=== PATIENT | male | born 1975 | race Caucasian/White ===

== ENCOUNTER 2017-09-25 08:41 | Emergency (ER) | payer OTHER ==
[~2017-09-25] VITALS: Ht 175.3 cm; Wt 103.0 kg
[2017-09-25 08:48] VITALS: BP 149/97; PULSE 84; RESP 18; TEMP 98.3; O2SAT 95
--- NOTE | 2017-09-25 08:56 | PD ---
HPI Chief Complaint: chest pain Time Seen by Provider: 08:51 Travel History International Travel<30 days: No Contact w/Intl Traveler<30days: No Traveled to known affect area: No History of Present Illness HPI 41-year-old male complains of chest pain. Patient states that the chest pain started a week ago. Patient states that he has intermittent chest pain for the past week. Patient states the pain and pressure pain localized left chest. Patient denies any pain radiation. Patient denies palpitation nausea diaphoresis with the chest pain. Patient states that the chest pain is not associated with exertion. Patient states that the pain usually lasts a few minutes and resolved completely. Patient denies any coughing congestion fever chills. Patient states that he started having sharp stabbing pain left anterior chest wall this morning. Patient states that the pain lasted a few minutes and resolved completely. Patient denies any chest pain now. Patient went to the [place] [facility] and was sent to the ED for evaluation. Patient has history hypertension, hyperlipidemia. Patient denies history diabetes. Patient denies any illicit drug abuse. Patient has history of DC status post 1 stent placement in the past. Patient was on aspirin and oral anticoagulant. Patient stopped taking them about 3 weeks ago. Patient states that he has history of PTSD, ulcerative colitis. Patient was on aspirin 81 mg daily and Plavix. [facility] Social History Tobacco Use: No Allergies-Medications (Allergen,Severity, Reaction): Coded Allergies: No Known Allergies (Verified Allergy, Unknown, 09/25/17) Reported Meds & Prescriptions Reported Meds & Active Scripts Active No Active Prescriptions or Reported Medications Review of Systems General / Constitutional: No: Fever Eyes: No: Visual changes HENT: No: Headaches Cardiovascular: Positive: Chest Pain or Discomfort Respiratory: No: Shortness of Breath Gastrointestinal: No: Abdominal Pain Genitourinary: No: Dysuria Musculoskeletal: No: Pain Skin: No Rash Neurologic: No: Weakness Psychiatric: No: Depression Endocrine: No: Polydipsia Hematologic/Lymphatic: No: Easy Bruising Physical Exam Narrative GENERAL: Well-nourished, well-developed patient. SKIN: Focused skin assessment warm/dry. HEAD: Normocephalic. EYES: No scleral icterus. No injection or drainage. NECK: Supple, trachea midline. No JVD or lymphadenopathy. CARDIOVASCULAR: Regular rate and rhythm without murmurs, gallops, or rubs. RESPIRATORY: Breath sounds equal bilaterally. No accessory muscle use. GASTROINTESTINAL: Abdomen soft, non-tender, nondistended. MUSCULOSKELETAL: No cyanosis, or edema. BACK: Nontender without obvious deformity. No CVA tenderness. Neurologic exam normal. Data Data Last Documented VS Orders Orders Electrocardiogram (09/25/17 08:51) Complete Blood Count With Diff (09/25/17 08:51) Comprehensive Metabolic Panel (09/25/17 08:51) Creatine Kinase (Cpk) (09/25/17 08:51) Troponin I (09/25/17 08:51) Prothrombin Time / Inr (Pt) (09/25/17 08:51) Act Partial Throm Time (Ptt) (09/25/17 08:51) Chest, Single Ap (09/25/17 08:51) Iv Access Insert/Monitor (09/25/17 08:51) Ecg Monitoring (09/25/17 08:51) Oximetry (09/25/17 08:51) CKMB (09/25/17 09:00) CKMB% (09/25/17 09:00) Ed Discharge Order (09/25/17 11:38) Aspirin (Aspirin) (09/25/17 11:45) Labs Laboratory Tests Test 09/25/17 09:00 White Blood Count 8.9 TH/MM3 Red Blood Count 5.74 MIL/MM3 Hemoglobin 17.1 GM/DL Hematocrit 49.9 % Mean Corpuscular Volume 86.8 FL Mean Corpuscular Hemoglobin 29.8 PG Mean Corpuscular Hemoglobin Concent 34.4 % Red Cell Distribution Width 13.8 % Platelet Count 215 TH/MM3 Mean Platelet Volume 8.5 FL Neutrophils (%) (Auto) 86.4 % Lymphocytes (%) (Auto) 7.7 % Monocytes (%) (Auto) 5.1 % Eosinophils (%) (Auto) 0.4 % Basophils (%) (Auto) 0.4 % Neutrophils # (Auto) 7.7 TH/MM3 Lymphocytes # (Auto) 0.7 TH/MM3 Monocytes # (Auto) 0.5 TH/MM3 Eosinophils # (Auto) 0.0 TH/MM3 Basophils # (Auto) 0.0 TH/MM3 CBC Comment DIFF FINAL Differential Comment Prothrombin Time 10.8 SEC Prothromb Time International Ratio 1.1 RATIO Activated Partial Thromboplast Time 22.7 SEC Blood Urea Nitrogen 17 MG/DL Creatinine 1.09 MG/DL Random Glucose 96 MG/DL Total Protein 7.4 GM/DL Albumin 4.0 GM/DL Calcium Level 9.1 MG/DL Alkaline Phosphatase 51 U/L Aspartate Amino Transf (AST/SGOT) 55 U/L Alanine Aminotransferase (ALT/SGPT) 97 U/L Total Bilirubin 0.6 MG/DL Sodium Level 138 MEQ/L Potassium Level 3.9 MEQ/L Chloride Level 101 MEQ/L Carbon Dioxide Level 30.1 MEQ/L Anion Gap 7 MEQ/L Estimat Glomerular Filtration Rate 75 ML/MIN Total Creatine Kinase 780 U/L Creatine Kinase MB 3.9 NG/ML Creatine Kinase MB % 0.5 % Troponin I LESS THAN 0.02 NG/ML MDM Medical Decision Making Medical Screen Exam Complete: Yes Emergency Medical Condition: Yes Interpretation(s) Last Impressions Chest X-Ray 09/25/17 0851 Signed Impressions: Service Date/Time: September 08:56 - CONCLUSION: Normal examination. Markos Lake MD 11:23 AM. CBC within normal limit. CMP within normal limit. Cardiac exam normal. Differential Diagnosis Differential diagnosis including musculoskeletal, angina, DC, PE, pneumothorax. Narrative Course 41-year-old male with intermittent chest pain. History of CAD status post stent placement. Patient has been noncompliant with medication for the past 3 weeks. Aspirin 325 mg by mouth. Patient was advised to be admitted to the chest pain Center. Patient refuses admission. Patient was warned of potential problems including DC and . Diagnosis Primary Impression: Chest pain Qualified Codes: R07.9 - Chest pain, unspecified Patient Instructions: General Instructions Additional Instructions: Advised patient to take his medication as directed. Follow-up with personal physician. Med/Other Pt SpecificInfo: No Change to Meds Scripts No Active Prescriptions or Reported Meds Disposition: 01 DISCHARGE HOME Condition: Stable Reggie Beltre MD Sep 25, 2017 08:56
[2017-09-25 09:00] VITALS: RESP 18; O2SAT 98
[2017-09-25 09:01] VITALS: BP 148/86; PULSE 84; RESP 18; O2SAT 98
[2017-09-25 09:13] LABS: AUTOMATED NEUTROPHIL # 7.7 TH/MM3 (1.8-7.7); BASOPHIL % 0.4 % (0.0-2.0); EOSINOPHIL % 0.4 % (0.0-4.0); HEMATOCRIT 49.9 % (39.0-51.0); HEMO FLAGS DIFF FINAL; LYMPH % 7.7 % (9.0-44.0); LYMPHOCYTE # 0.7 TH/MM3 (1.0-4.8); MEAN CELL VOLUME 86.8 FL (80.0-100.0); MEAN CORPUSCULAR HEMOGLOBIN 29.8 PG (27.0-34.0); MEAN CORPUSCULAR HGB CONC 34.4 % (32.0-36.0); MONO % 5.1 % (0.0-8.0); NEUT % 86.4 % (16.0-70.0); PLATELET COUNT 215 TH/MM3 (150-450); RED BLOOD COUNT 5.74 MIL/MM3 (4.50-5.90); RED CELL DISTRIBUTION WIDTH 13.8 % (11.6-17.2); WHITE BLOOD COUNT 8.9 TH/MM3 (4.0-11.0)
[2017-09-25 09:19] LABS: APTT (PATIENT) 22.7 SEC (24.3-30.1); INTERNATIONAL NORMALIZED RATIO 1.1 RATIO; PROTHROMBIN TIME - PATIENT 10.8 SEC (9.8-11.6)
[2017-09-25 09:26] LABS: ALT (GPT) 97 U/L (12-78)
--- NOTE | 2017-09-25 09:26 | RADRPT ---
EXAM DATE/TIME: 09/25/2017 08:56 [facility] COMPARISON: No previous studies available for comparison. INDICATIONS : Chest pain x 1 day. MEDICAL HISTORY : None. SURGICAL HISTORY : Appendectomy. ENCOUNTER: Initial ACUITY: 1 day PAIN SCORE: 8/10 LOCATION: Bilateral chest FINDINGS: A single view of the chest demonstrates the lungs to be symmetrically aerated without evidence of mas s, infiltrate or effusion. The cardiomediastinal contours are unremarkable. Osseous structures are intact. CONCLUSION: Normal examination. Markos Lake MD on September 25, 2017 at 9:23 Board Certified Radiologist. This report was verified electronically.
[2017-09-25 09:30] LABS: ALKALINE PHOSPHATASE 51 U/L (45-117); CREATINE KINASE 780 U/L (39-308); TOTAL BILIRUBIN ADULT 0.6 MG/DL (0.2-1.0)
[2017-09-25 09:34] LABS: ANION GAP 7 MEQ/L (5-15); AST (GOT) 55 U/L (15-37); BICARBONATE 30.1 MEQ/L (21.0-32.0); BLOOD UREA NITROGEN 17 MG/DL (7-18); CHLORIDE 101 MEQ/L (98-107); GLOMERULAR FILTRATION RATE 75 ML/MIN (>89); POTASSIUM 3.9 MEQ/L (3.5-5.1); SODIUM (NA) 138 MEQ/L (136-145)
[2017-09-25 09:42] LABS: CKMB 3.9 NG/ML (0.5-3.6)
[2017-09-25] MEDS ORDERED: ASPIRIN 325 MG TAB PO ONE (11:45)
--- NOTE | 2017-09-25 14:15 | EKG ---
Date Performed: 09/25/2017 Time Performed: 08:54:52 PTAGE: 41 years EKG: Sinus rhythm Nonspecific T wave changes NO PREVIOUS TRACING DOCTOR: Duong Hodge Interpretating Date/Time 09/25/2017 14:13:19
== END 2017-09-25 12:11 | disposition home or self-care (01) ==
LOC: NEPC 08:41
DX: R07.9 Chest pain, unspecified (principal); I10 Essential (primary) hypertension; E78.5 Hyperlipidemia, unspecified; F43.10 Post-traumatic stress disorder, unspecified; K51.90 Ulcerative colitis, unspecified, without complications; I25.10 Atherosclerotic heart disease of native coronary artery without angina pectoris; I25.2 Old myocardial infarction; Z91.14 Patient's other noncompliance with medication regimen
CPT/HCPCS: 71010; 80053; 82550; 82552; 84484; 85025; 85610; 85730; 93005